=== PATIENT | female | born 1990 | race Two or more races ===

== ENCOUNTER 2017-03-12 15:55 | Observation (INO) | payer MEDICAID ==
[~2017-03-12 15:55] MED LIST: PREN-96 PO
== END 2017-03-12 17:15 | disposition home or self-care (01) | DRG 566 ==
LOC: LDRP 15:55
PROVIDERS: ADMIT Specialist; ATTEND Specialist
DX: O21.2 Late vomiting of pregnancy (principal); Z3A.32 32 weeks gestation of pregnancy
CPT/HCPCS: 59025; 81002; 82948; 82962; G0378

== ENCOUNTER 2017-04-25 01:37 | Inpatient (IN) | payer MEDICAID ==
[~2017-04-25] VITALS: Ht 165.1 cm; Wt 93.0 kg
[2017-04-25] MEDS ORDERED: LACT. RINGERS/OXYTOCIN 20UNITS 1,000 ML IV SCH ×2 (02:06→06:12)
[2017-04-25] MEDS ORDERED: LACTATED RINGER'S 1,000 ML IV SCH (02:06)
[2017-04-25] MEDS ORDERED: WITCH HAZEL-GLYCERIN PAD TOP PRN (02:15)
[2017-04-25] MEDS ORDERED: METHYLERGONOVINE MALEATE 0.2 MG/ML AMP IM PRN (02:15)
[2017-04-25] MEDS ORDERED: PHISODERM TOP SOLN 240ML BTL TOP PRN (02:15)
[2017-04-25] MEDS ORDERED: LIDOCAINE 2%HCL (LOCAL ANESTH.) INJ 20ML MDV IJ PRN (02:15)
[2017-04-25] MEDS ORDERED: NALBUPHINE HCL 10 MG/1ml INJECTION IV PRN (02:15)
[2017-04-25] MEDS ORDERED: DERMOPLAST 60ML BOTTLE TOP PRN (02:15)
[2017-04-25 02:50] LABS: Hematocrit 37.2 % (36.0-46.0); Hemoglobin 12.4 g/dL (12.2-16.2); Mean Corpuscular Hemoglobin 28.3 pg (28.0-32.0); Mean Corpuscular Hgb Conc. 33.5 g/dL (32.0-36.0); Mean Corpuscular Volume 84.4 fL (80.0-100.0); Mean Platelet Volume 9.4 fL (6.9-10.8); Platelet Count (auto) 202 10^3/uL (140-450); Red Cell Distribution Width 15.9 % (11.8-14.3); White Blood Cell 8.9 10^3/uL (4.4-10.8)
[2017-04-25 02:55] LABS: Urine Bilirubin Negative (Negative); Urine Blood 3+ /uL (Negative); Urine Color Colorless (Yellow); Urine Glucose Normal (Normal); Urine Ketone Negative (Negative); Urine Mucus FEW (None Seen); Urine Nitrite Negative (Negative); Urine RBC 10 /hpf (0 - 4); Urine Squamous Epithelial Cell FEW /hpf (<5); Urine Urobilinogen Normal (Negative); Urine pH 6.5 (5.0-8.0)
[2017-04-25 02:58] LABS: Metamyelocytes % 0; Myelocytes % 0; Promyelocytes % 0; Reactive Lymphocytes 0
[2017-04-25 03:06] LABS: Albumin 2.7 g/dL (3.4-5.0); Calcium 8.5 mg/dL (8.5-10.1); Potassium 3.7 mmol/L (3.5-5.1)
[2017-04-25 03:09] LABS: Bilirubin, Total 0.2 mg/dL (0.2-1.0); Total Protein 6.7 g/dL (6.4-8.2)
[2017-04-25 03:24] LABS: INR 0.88 (0.9-1.15); Partial Thromboplastin Time 27.3 sec (22.64-33.71); Prothrombin Time 9.6 sec (9.37-12.3)
[2017-04-25 03:34] LABS: Anisocytosis Slight; Platelet Estimate Adequate
[2017-04-25] MEDS ORDERED: PROMETHAZINE HCL 25 MG/ML 1ML IV ONE (06:00)
[2017-04-25] MEDS ORDERED: fentaNYL W ROPIVACAINE 150 ML EPI SCH (06:15)
[2017-04-25] MEDS ORDERED: ePHEDrine SULFATE 50 MG/ML AMP IV ONE (06:15)
[2017-04-25] MEDS ORDERED: NALOXONE HCL 0.4 MG/ML VIAL IV ONE (06:15)
[2017-04-25] MEDS ORDERED: LIDOCAINE HCL 2 %PF INJ 10ML AMP IJ ONE (06:15)
[2017-04-25] MEDS ORDERED: TERBUTALINE SULFATE 1 MG/ML 1ML VIAL SC ONE (06:15)
[2017-04-25] MEDS ORDERED: fentaNYL CITRATE 100 MCG/2 ML VL IV ONE (06:15)
[2017-04-25] MEDS ORDERED: LACT. RINGERS/OXYTOCIN 20UNITS 500 ML IV ONE (09:29)
[2017-04-25] MEDS ORDERED: ONDANSETRON HCL 4 MG/2 ML VIAL IV PRN (09:30)
[2017-04-25] MEDS ORDERED: CARBOPROST TROMETHAMINE 250 MCG/1ML VIAL IM ONE (09:30)
[2017-04-25] MEDS ORDERED: CARBOPROST TROMETHAMINE 250 MCG/1ML VIAL IM PRN (09:30)
[2017-04-25] MEDS ORDERED: METHYLERGONOVINE MALEATE 0.2 MG/ML AMP IM ONE (09:30)
[2017-04-25] MEDS ORDERED: DIPHENOXYLATE W/ATROPINE 2.5 MG TAB PO PRN (09:30)
[2017-04-25] MEDS: IBUPROFEN 600 MG TAB PO PRN ×3 (09:44→16:25)
[2017-04-25 11:50] VITALS: BP 121/75
[2017-04-25] MEDS: DOCUSATE CALCIUM 240 MG CAP PO SCH (12:49)
[2017-04-25 16:10] VITALS: BP 90/54
[2017-04-25] MEDS ORDERED: TETANUS-DIPTH-ACEL PERTUSSIS 0.5ML SYRG IM ONE (17:45)
[2017-04-25] MEDS ORDERED: MEASLES, MUMPS & RUBELLA VAC(MMRII) 0.5ML SC ONE (17:45)
[2017-04-25] MEDS: ACETAMINOPHEN 325 MG TAB PO PRN (18:44)
[2017-04-25 20:21] VITALS: BP 97/55
[2017-04-25 23:46] VITALS: BP 128/73
[2017-04-26] MEDS: IBUPROFEN 600 MG TAB PO PRN ×2 (00:46→08:39)
[2017-04-26 03:45] VITALS: BP 92/53
[2017-04-26] MEDS: ACETAMINOPHEN 325 MG TAB PO PRN (05:31)
[2017-04-26 07:08] VITALS: BP 118/58
[2017-04-26] MEDS: DOCUSATE CALCIUM 240 MG CAP PO SCH (10:02)
[2017-04-26 11:36] VITALS: BP 116/72
[2017-04-26 12:27] VITALS: BP 116/72
== END 2017-04-26 12:30 | disposition home or self-care (01) | DRG 560 ==
LOC: LDRP 01:37 → OBSVTOIN 01:37
PROVIDERS: ADMIT Obstetrics & Gynecology; ATTEND Obstetrics & Gynecology
PROC: 10E0XZZ Delivery of Products of Conception, External Approach (ICD-10-PCS; principal; 2017-04-25)
PROC: 0KQM0ZZ Repair Perineum Muscle, Open Approach (ICD-10-PCS; 2017-04-25)
PROC: 10907ZC Drainage of Amniotic Fluid, Therapeutic from Products of Conception, Via Natural or Artificial Opening (ICD-10-PCS; 2017-04-25)
DX: O77.0 Labor and delivery complicated by meconium in amniotic fluid (principal); O70.1 Second degree perineal laceration during delivery; Z37.0 Single live birth; Z3A.39 39 weeks gestation of pregnancy; Z23 Encounter for immunization
CPT/HCPCS: 36415; 59025; 59409; 80053; 80307; 81001; 85007; 85027; 85610; 85730; 86850; 86900; 86901; 90471; 90715; 96365; 96366; J2590; J3010